=== PATIENT | male | born 1955 | race Caucasian/White ===

== ENCOUNTER → 2017-12-04 | Outpatient (CLI) | payer OTHER ==
[~2017-12-04] MED LIST: ASCO-182 PO; ASPI-1471 PO; CALC-515 PO; GLUC-255 PO; GLUC100026 PO; IBU800 PO; LOSA100T67 PO; LYSI500T34 PO; MULT1TAB64 PO; NO ROUTINE MEDS; OMEG-23 PO; PANT40TA65 PO; RAMI5CAP53 PO
[2017-12-04 14:51] LABS: PLATELET COUNT, AUTOMATED 201 K/uL (150-450)
== END ==
LOC: LAB 13:03
PROVIDERS: ATTEND Internal Medicine
DX: I48.91 Unspecified atrial fibrillation (principal); N18.3 Chronic kidney disease, stage 3 (moderate); R94.5 Abnormal results of liver function studies; D64.9 Anemia, unspecified
CPT/HCPCS: 36415; 82040; 82150; 82247; 82274; 82310; 82374; 82435; 82565; 82728; 82947; 83540; 83550; 83690; 84075; 84132; 84155; 84295; 84450; 84460; 84520; 85025

== ENCOUNTER → 2018-01-21 | Day surgery (SDC) | payer OTHER ==
[~2018-01-21] VITALS: Ht 180.3 cm; Wt 98.0 kg
[~2018-01-21] MED LIST changes: +GLYCOPYRROLATE 0.2MG/ML 1 ML INJ ONE; +LIDOCAINE/SOD BICARB 8.4% SYR ID ONE; +NORMOSOL R SOLN(*) 1000 ML BAG 1,000 ML IV PRN; +PROPOFOL EMUL(*) 10MG/ML 20 ML 20 ML ONE; +PROPOFOL EMUL(*) 10MG/ML 20 ML 40 ML ONE
[2018-01-21 07:30] VITALS: BP 140/90
[2018-01-21 09:53] VITALS: BP 116/77
--- NOTE | 2018-01-21 10:03 | Short(Outpt) Discharge Summary ---
Discharge Summary Reason for Hosp/Final Diag: (1) Diarrhea Status: Chronic Hospital Course & Plan: EGD with biopsies and colonoscopy with biopsies and polpyectomy completed without problems. (2) Black tarry stools (3) History of colon polyps Status: Chronic (4) History of melena Status: Chronic Departure Discharge to: Home, Self Care Discharge Instructions Home Meds Active Scripts Pantoprazole Sodium (PANTOPRAZOLE SODIUM) 40 Mg Tablet.dr, 40 MG PO QDAY, #30 TAB.SR 6 Refills Prov:BEN WATERS MD 12/04/17 Losartan Potassium (LOSARTAN POTASSIUM) 100 Mg Tablet, 100 MG PO QDAY, #90 TAB 3 Refills Prov:BEN WATERS MD 12/04/17 Follow up Referrals: General Surgery - 02/10/18 @ Surgery, General with Anirudh Dickinson Md You have a follow up appointment scheduled with Dr. Dickinson on 02/10/18, at 11:00am. Diet: Regular Activity: As Tolerated Special Instructions: Your EGD and colonoscopy were completed without problems and your prep was excellent (Good Job!!). I took biopsies throughout your colon and from your stomach and duodenum. I also removed 6 polyps from your colon, all small. I didn't find any cancer or anything else dangerous or concerning. I will discuss the results of all the biopsies when I see you back in my office and based on these results we can come up with a game plan to improve your diarrhea. Problem Qualifiers (1) Diarrhea: Diarrhea type: unspecified type Qualified Codes: R19.7 - Diarrhea, unspecified ANIRUDH DICKINSON MD Jan 21, 2018 10:03
[2018-01-21 10:13] VITALS: BP 129/89
[2018-01-21 10:20] VITALS: BP 125/84
[2018-01-21 10:21] VITALS: BP 126/96
== END ==
LOC: OR 00:12
PROVIDERS: ATTEND Surgery
DX: D12.3 Benign neoplasm of transverse colon (principal); K63.5 Polyp of colon; K44.9 Diaphragmatic hernia without obstruction or gangrene
CPT/HCPCS: 00811; 36415; 43239; 45385; 83516; 87077; 88305; J2704; J3490

== ENCOUNTER → 2018-12-17 | Outpatient (CLI) | payer MEDICARE, OTHER ==
[~2018-12-17] MED LIST changes: -GLYCOPYRROLATE 0.2MG/ML 1 ML INJ ONE; -LIDOCAINE/SOD BICARB 8.4% SYR ID ONE; -LOSA100T67 PO; +LOSA100T75 PO; -NORMOSOL R SOLN(*) 1000 ML BAG 1,000 ML IV PRN; -PROPOFOL EMUL(*) 10MG/ML 20 ML 20 ML ONE; -PROPOFOL EMUL(*) 10MG/ML 20 ML 40 ML ONE; -RAMI5CAP53 PO; +RAMI5CAP7 PO
[2018-12-17 06:57] LABS: PLATELET COUNT, AUTOMATED 197 K/uL (150-450)
[2018-12-17 15:14] LABS: LDL CHOLESTEROL 131 mg/dl
== END ==
LOC: LAB 06:31
PROVIDERS: ATTEND Internal Medicine
DX: Z12.5 Encounter for screening for malignant neoplasm of prostate (principal); I48.91 Unspecified atrial fibrillation; N18.3 Chronic kidney disease, stage 3 (moderate); D64.9 Anemia, unspecified; Z86.010 Personal history of colon polyps; I12.9 Hypertensive chronic kidney disease with stage 1 through stage 4 chronic kidney disease, or unspecified chronic kidney disease
CPT/HCPCS: 36415; 81001; 82728; 83540; 83550; 84443; 85025; G0103; 82040; 82247; 82310; 82374; 82435; 82465; 82565; 82947; 83718; 84075; 84132; 84153; 84155; 84295; 84450; 84460; 84478; 84520

== ENCOUNTER → 2018-12-25 | Outpatient (CLI) | payer MEDICARE, OTHER ==
[~2018-12-25] MED LIST changes: +ATOR20TA65 PO; +LOSA-57 PO; +PNEU0.5D3 IM
[2018-12-25 10:41] LABS: LDL CHOLESTEROL 131 mg/dl
== END ==
LOC: LAB 08:35
PROVIDERS: ATTEND Internal Medicine
DX: E78.5 Hyperlipidemia, unspecified (principal); R73.09 Other abnormal glucose; I10 Essential (primary) hypertension
CPT/HCPCS: 36415; 82040; 82247; 82310; 82374; 82435; 82465; 82565; 82947; 83036; 83718; 84075; 84132; 84155; 84295; 84450; 84460; 84478; 84520